=== PATIENT | female | born 2000 | race Caucasian/White ===

== ENCOUNTER 2018-05-22 01:30 | Inpatient (IN) | payer BC ==
[~2018-05-22] VITALS: Ht 165.1 cm; Wt 98.9 kg
[2018-05-22] MEDS: LR 1,000 ML IV SCH ×5 (02:16→21:00)
[2018-05-22] MEDS ORDERED: OXYTOCIN/0.9 % SODIUM CHLORIDE 1,000 ML IV SCH ×2 (02:28→23:19)
[2018-05-22] MEDS ORDERED: LR 1,000 ML IV ONE (02:28)
[2018-05-22] MEDS ORDERED: NALBUPHINE HCL 10 MG/ML AMP IVP PRN (02:30)
[2018-05-22] MEDS ORDERED: OXYTOCIN 30 UNIT in LR 1,000 ML IV SCH (02:30)
[2018-05-22 02:37] VITALS: BP_SYST 104
[2018-05-22 03:20] LABS: HEMATOCRIT 34.6 % (36-48); HEMOGLOBIN 12.1 g/dL (12.0-16.0); LYMPHOCYTES % (AUTO) 19.5 % (20.5-51.5); MEAN CORPUSCULAR HEMOGLOBIN 30 pg (27-31); MEAN CORPUSCULAR HGB CONC 35 % (32-36); MEAN CORPUSCULAR VOLUME 86 fL (79.0-98.0); MONOCYTES % (AUTO) 4.5 % (1.7-9.3); NEUTROPHILS % (AUTO) 75.1 % (40.0-70.0); PLATELET COUNT (AUTO) 267 K/uL (130-430); RED BLOOD CELL COUNT(AUTO) 4.05 MIL/uL (4.2-6.2); RED CELL DISTRIBUTION WIDTH 12.4 % (9.0-15.0); WHITE BLOOD COUNT (AUTO) 14.4 K/uL (4.5-11.0)
[2018-05-22 03:21] LABS: BASOPHILS # (AUTO) 0.1 K/uL (0.0-0.2); BASOPHILS % (AUTO) 0.5 % (0.0-2.0); EOSINOPHILS # (AUTO) 0.1 K/uL (0.0-0.4); EOSINOPHILS % (AUTO) 0.4 % (0.0-4.0); LYMPHOCYTES # (AUTO) 2.8 K/uL (1.0-5.5); MONOCYTES # (AUTO) 0.6 K/uL (0.0-1.0); NEUTROPHILS # (AUTO) 10.8 K/uL (1.8-7.7)
[2018-05-22] MEDS ORDERED: ROPIVACAINE 0.2% 100 ML ONE ×2 (04:53→10:19)
[2018-05-22] MEDS ORDERED: fentaNYL CITRATE/PF 100 MCG/2 ML AMP ONE ×4 (04:53→20:19)
[2018-05-22] MEDS ORDERED: LR 500 ML IV ONE (05:23)
[2018-05-22] MEDS ORDERED: FENT2mCg/mL-ROPIVA0.2%/NS EPID 150 ML EP SCH (05:30)
[2018-05-22] MEDS ORDERED: AMPICILLIN SODIUM 2 GM in NS 100 ML IV ONE (13:45)
[2018-05-22] MEDS ORDERED: AMPICILLIN SODIUM 1 GM in NS 50 ML IV SCH (18:00)
[2018-05-22] MEDS ORDERED: TEMAZEPAM 15 MG CAPSULE PO PRN (21:00)
[2018-05-22] MEDS ORDERED: METHYLERGONOVINE MALEATE 0.2 MG/ML AMP ONE (22:58)
[2018-05-22] MEDS ORDERED: OXYTOCIN/0.9 % SODIUM CHLORIDE 1,000 ML IV ONE (23:19)
[2018-05-22] MEDS ORDERED: DERMOPLAST SPRAY TP PRN (23:30)
[2018-05-22] MEDS ORDERED: LANOLIN 7 GM OINT. TP PRN (23:30)
[2018-05-22] MEDS ORDERED: METHYLERGONOVINE MALEATE 0.2 MG TABLET PO PRN (23:30)
[2018-05-22] MEDS ORDERED: DIPH-TET-PERTUS Vaccine 0.5 ML VIAL (ADACEL) I.M. PRN (23:30)
[2018-05-22] MEDS ORDERED: ANUSOL 1 EA SUPP.RECT (PREPARATION H) RC PRN (23:30)
[2018-05-22] MEDS ORDERED: HYDROCORTISONE 0.5%, 28.35 GM TOPICAL CREAM TP PRN (23:30)
[2018-05-22] MEDS ORDERED: MEASLES,MUMPS&RUBELLA VACC/PF 12500 UNIT/0.5 ML VIAL SUBQ PRN (23:30)
[2018-05-22] MEDS ORDERED: WITCH HAZEL LEAF 1 MED.PAD MED.PAD TP PRN (23:30)
[2018-05-22] MEDS ORDERED: DOCUSATE SODIUM 100 MG CAPSULE PO PRN (23:30)
[2018-05-23] MEDS ORDERED: IBUPROFEN 600 MG TABLET ONE (01:21)
[2018-05-23 06:52] LABS: HEMATOCRIT 40.3 % (36-48); HEMOGLOBIN 13.8 g/dL (12.0-16.0); MEAN CORPUSCULAR HEMOGLOBIN 30 pg (27-31); MEAN CORPUSCULAR HGB CONC 34 % (32-36); MEAN CORPUSCULAR VOLUME 87 fL (79.0-98.0); PLATELET COUNT (AUTO) 320 K/uL (130-430); RED BLOOD CELL COUNT(AUTO) 4.63 MIL/uL (4.2-6.2); RED CELL DISTRIBUTION WIDTH 12.6 % (9.0-15.0)
[2018-05-23 07:26] LABS: WHITE BLOOD COUNT (AUTO) 25.5 K/uL (4.5-11.0)
[2018-05-23 08:14] LABS: BAND % (MANUAL) 2 % (0-6); BASOPHILS % (MANUAL) 0 % (0-2); EOSINOPHILS % (MANUAL) 0 % (0-7); LYMPHOCYTES % (MANUAL) 7 % (20-46); MONOCYTES % (MANUAL) 0 % (0-11)
[2018-05-23] MEDS: IBUPROFEN 600 MG TABLET PO SCH ×2 (12:25→17:44)
[2018-05-23] MEDS ORDERED: OXYCODONE/ACETAMINOPHEN 5-325 TABLET PO PRN (20:45)
[2018-05-24] MEDS: IBUPROFEN 600 MG TABLET PO SCH ×3 (00:46→11:48)
[2018-05-24 07:22] LABS: BASOPHILS # (AUTO) 0.1 K/uL (0.0-0.2); BASOPHILS % (AUTO) 0.5 % (0.0-2.0); EOSINOPHILS # (AUTO) 0.2 K/uL (0.0-0.4); EOSINOPHILS % (AUTO) 1.3 % (0.0-4.0); HEMOGLOBIN 9.8 g/dL (12.0-16.0); LYMPHOCYTES # (AUTO) 3.9 K/uL (1.0-5.5); LYMPHOCYTES % (AUTO) 28.4 % (20.5-51.5); MEAN CORPUSCULAR HEMOGLOBIN 29 pg (27-31); MEAN CORPUSCULAR HGB CONC 33 % (32-36); MEAN CORPUSCULAR VOLUME 89 fL (79.0-98.0); MONOCYTES # (AUTO) 0.8 K/uL (0.0-1.0); MONOCYTES % (AUTO) 6.2 % (1.7-9.3); NEUTROPHILS # (AUTO) 8.6 K/uL (1.8-7.7); NEUTROPHILS % (AUTO) 63.6 % (40.0-70.0); PLATELET COUNT (AUTO) 247 K/uL (130-430); RED BLOOD CELL COUNT(AUTO) 3.39 MIL/uL (4.2-6.2); RED CELL DISTRIBUTION WIDTH 13.1 % (9.0-15.0); WHITE BLOOD COUNT (AUTO) 13.6 K/uL (4.5-11.0)
[2018-05-24] MEDS ORDERED: IBUP-1971 PO (08:25)
== END 2018-05-24 15:47 | disposition home or self-care (01) | DRG 775 ==
LOC: SPU 01:30
PROVIDERS: ADMIT Specialist; ATTEND Specialist
PROC: 10E0XZZ Delivery of Products of Conception, External Approach (ICD-10-PCS; principal; 2018-05-22)
PROC: 0UQGXZZ Repair Vagina, External Approach (ICD-10-PCS; 2018-05-22)
PROC: 3E0R3BZ Introduction of Anesthetic Agent into Spinal Canal, Percutaneous Approach (ICD-10-PCS; 2018-05-22)
PROC: 00HU33Z Insertion of Infusion Device into Spinal Canal, Percutaneous Approach (ICD-10-PCS; 2018-05-22)
DX: O42.92 Full-term premature rupture of membranes, unspecified as to length of time between rupture and onset of labor (principal); O71.4 Obstetric high vaginal laceration alone; O36.5930 Maternal care for other known or suspected poor fetal growth, third trimester, not applicable or unspecified; Z3A.39 39 weeks gestation of pregnancy; Z37.0 Single live birth
CPT/HCPCS: 36415; 85007; 85025; 85027; 86592; 86886; 86900; 86901; J0290; J2210; J2300; J2590; J2795; J3010; J7120

== ENCOUNTER 2019-01-28 22:27 | Inpatient (IN) | payer BC ==
[~2019-01-28] VITALS: Ht 165.1 cm; Wt 95.7 kg
[~2019-01-28 22:27] MED LIST: IBUP-1971 PO
[2019-01-28 22:35] VITALS: BP_SYST 97
--- NOTE | 2019-01-28 22:42 | NUR ---
Patient triaged and placed in waiting room. VSS and patient appears in no acute distress at this time. Accompanied by father, awaiting available bed, and MD notified of need for MSE.
--- NOTE | 2019-01-28 23:06 | NUR ---
Pt wheeled to bed 1 for evaluation
--- NOTE | 2019-01-28 23:07 | NUR ---
Pt was wheeled to bed 1 c/o rib pain and upper abdominal pain that happened this evening. Pt states she was cleaning her room when she started to feel excruciating pain to rib and abdomen, causing N/V. Pt felt hot and cold. No other injuries/complaints per patient or noted.
--- NOTE | 2019-01-28 23:08 | NUR ---
ER Dr. North at bedside examining patient.
[2019-01-28] MEDS ORDERED: NACL 0.9% 1,000 ML IV ONE (23:13)
[2019-01-28] MEDS ORDERED: ONDANSETRON HCL 4 MG/2 ML VIAL IVP ONE (23:15)
[2019-01-28] MEDS ORDERED: KETOROLAC TROMETHAMINE 30 MG VIAL IVP ONE (23:15)
[2019-01-28 23:28] LABS: BASOPHILS % (AUTO) 0.5 % (0.0-2.0); EOSINOPHILS # (AUTO) 0.1 K/uL (0.0-0.4); EOSINOPHILS % (AUTO) 0.8 % (0.0-4.0); HEMATOCRIT 36.9 % (36-48); HEMOGLOBIN 11.8 g/dL (12.0-16.0); LYMPHOCYTES % (AUTO) 25.5 % (20.5-51.5); MEAN CORPUSCULAR HEMOGLOBIN 27 pg (27-31); MEAN CORPUSCULAR HGB CONC 32 % (32-36); MEAN CORPUSCULAR VOLUME 84 fL (79.0-98.0); MONOCYTES # (AUTO) 0.6 K/uL (0.0-1.0); MONOCYTES % (AUTO) 7.4 % (1.7-9.3); NEUTROPHILS # (AUTO) 5.1 K/uL (1.8-7.7); NEUTROPHILS % (AUTO) 65.8 % (40.0-70.0); PLATELET COUNT (AUTO) 265 K/uL (130-430); WHITE BLOOD COUNT (AUTO) 7.7 K/uL (4.5-11.0)
[2019-01-28 23:43] LABS: CALCIUM 8.6 mg/dL (8.4-11.0); CREATININE 0.86 mg/dL (0.55-1.30); POTASSIUM 3.5 mmol/L (3.5-5.1)
[2019-01-28 23:49] LABS: ALBUMIN 3.5 g/dL (3.4-4.8); TOTAL BILIRUBIN 0.2 mg/dL (0.0-1.0)
[2019-01-29] VITALS (7 sets, daily range): BP systolic 91–119
[2019-01-29] MEDS ORDERED: NORE1TAB92 PO (00:08)
--- NOTE | 2019-01-29 00:08 | NUR ---
ER Dr. North at bedside explaining results to patient.
--- NOTE | 2019-01-29 00:08 | NUR ---
Medication reconciliation completed with information provided by patient. Any prior medication reconciliation on file was reviewed and corrected.
--- NOTE | 2019-01-29 01:28 | NUR ---
Note ashutosh in EDM - 01/29/19 at 0131 by [email or web address] Patient will be admitted to care of Dr. James. Admitted to Med Surg unit. Will go to room 108 C. Belongings list completed. Summary report printed. Report will be given at bedside.
--- NOTE | 2019-01-29 01:28 | NUR ---
Transfer to [facility]. IV present no sign or symptom of infiltration.
[2019-01-29] MEDS ORDERED: KETOROLAC TROMETHAMINE 30 MG VIAL IVP PRN (01:30)
--- NOTE | 2019-01-29 01:49 | NUR ---
ADMIT NOTE Received pt from ER to the floor with a diagnosis of acute cholecystitis. Admission process initiated. patient oriented to pain management, safety and call light-teach back done.
[2019-01-29] MEDS: NACL 0.9% 1,000 ML IV SCH ×2 (01:59→21:44)
--- NOTE | 2019-01-29 03:08 | NUR ---
PATIENT AWAKE ALERT AMBULATES STEADY GAIT , ASSIST OUT OF BED TO Rest Room call system use procedures explained verbalize understanding Teach back method implemented .
--- NOTE | 2019-01-29 03:11 | NUR ---
ADMISSION: The patient, JULIO QUEZADA, 18 y/o, F admitted by RAVEN GARCIA DO, was given written information regarding hospital policies, unit procedures and contact persons. Valuables were checked and personal belongings list completed procedures explained patient verbalize understanding .
--- NOTE | 2019-01-29 05:04 | NUR ---
CONSULT: CONSULT CALLED FOR DR. GEOFFREY JOY I SPOKE WITH [place] REASON FOR CONSULT: CHOLECYSTITIS REQUESTING CONSULT: DR. GARCIA [employer] SHIFT MANAGER PHONE NUMBER: [phone]
[2019-01-29] MEDS ORDERED: ACETAMINOPHEN 325 MG TABLET PO PRN (07:45)
[2019-01-29] MEDS ORDERED: ONDANSETRON HCL 4 MG/2 ML VIAL IVP PRN (07:45)
[2019-01-29] MEDS ORDERED: MORPHINE 4 MG/ML INJ. SYRINGE IVP PRN (07:45)
[2019-01-29] MEDS ORDERED: MAGNESIUM SULFATE 50 ML IV PRN (07:45)
[2019-01-29] MEDS ORDERED: POTASSIUM CHLORIDE 20 MEQ TAB.PRT.SR PO PRN (07:45)
[2019-01-29] MEDS ORDERED: DOCUSATE SODIUM 100 MG CAPSULE PO PRN (07:45)
[2019-01-29] MEDS ORDERED: MUPIROCIN 2% TOPICAL OINTMENT 22 GM NS PRN (07:45)
--- NOTE | 2019-01-29 07:59 | NUR ---
AM NOTES IN BED, AWAKE. KEEP NPO. DENIES ANY PAIN OR DISCOMFORT. IVF INFUSING WELL. SAFETY PRECAUTION OBSERVED. CALL LIGHT IN REACH. ENC. TO CALL FOR HELP NEEDED.
[2019-01-29 09:12] LABS: PROTHROMBIN TIME 10.2 SECS (9.5-12.5)
--- NOTE | 2019-01-29 10:05 | NUR ---
notes- Resting in bed, denies any pain. Still waiting for the urine. Pt's aware.
[2019-01-29 10:21] LABS: AMYLASE 103 U/L (0-100); LIPASE 247 U/L (73-393)
[2019-01-29 11:20] LABS: BILIRUBIN,URINE NEGATIVE (NEGATIVE); BLOOD, URINE NEGATIVE (NEGATIVE); COLOR,URINE YELLOW (YELLOW); GLUCOSE,URINE NEGATIVE (NEGATIVE); KETONES,URINE NEGATIVE (NEGATIVE); LEUKOCYTE ESTERASE ,URINE 2+ (NEGATIVE); NITRITE, URINE NEGATIVE (NEGATIVE); PH,URINE 6.5 (5.0-8.0); PROTEIN URINE 1+ (NEGATIVE); UROBILINOGEN,URINE 0.2 (0.2-1.0)
[2019-01-29 11:27] LABS: CLARITY/URINE HAZY (CLEAR)
[2019-01-29 11:30] LABS: BACTERIA,URINE MODERATE /HPF (None Seen); WBC,URINE 20-50 /HPF (0-3)
[2019-01-29 11:31] LABS: MUCUS,URINE 2+ /LPF (None Seen)
[2019-01-29 11:40] LABS: BARBITURATE, URINE NEGATIVE (NEG <=200); BENZODIAZEPINE, URINE NEGATIVE (NEG <=150); CANNABINOID, URINE NEGATIVE (NEG <=50); COCAINE, URINE NEGATIVE (NEG <=150); METHAMPHETAMINES SCREEN,URINE NEGATIVE (NEG <=500); OPIATE, URINE NEGATIVE (NEG <=100); PHENCYCLIDINE SCREEN,URINE NEGATIVE (NEG <=25); UR TRICYCLIC ANTIDEPRESSANTS NEGATIVE (NEG <=300); URINE AMPHETAMINE NEGATIVE (NEG <=500); URINE METHADONE NEGATIVE (NEG <=200); URINE OXYCODONE SCREEN NEGATIVE (NEG <=100); URINE PROPOXYPHENE SCREEN NEGATIVE (NEG <=300)
--- NOTE | 2019-01-29 14:17 | NUR ---
Notes- Follow up consult to Dr. Dukes. Pt in bed, denies any pain at this time. IVF infusing well. No distress noted.
--- NOTE | 2019-01-29 17:02 | NUR ---
Surgical consult follow up: Called and spoke with Derian at exchange. consult resent to Sekou Ramirez regarding cholecystitis
--- NOTE | 2019-01-29 17:08 | NUR ---
Notes- Spoke to Dr. knox, Per mD he will come and see patient and family at bedside and made aware.
--- NOTE | 2019-01-29 18:30 | NUR ---
Notes- in bed, family at bedside. Denies any pain at this time. IVF infusing well. no distress noted. will endorse
--- NOTE | 2019-01-29 19:20 | NUR ---
INITIAL NOTES: BEDSIDE REPORT DONE THIS TIME.PATIENT IN BED AWAKE ,ALERT ,ORIENTED X4. FATHER AT BEDSIDE ASKING WHEN SURGEON COMES TO SEE PATIENT SINCE SHE IS HUNGRY.AM RN VALERIE WHO SPOKE TO MD INFORMED THEM AGAIN ,MD WILL COME ANYTIME TONIGHT.NOC RN WILL CALL.NON TELE.NOTED IVF PUMP OFF SINCE IVF BAG IS EMPTY.CALL LIGHT WITHIN REACH. BED IN LOW POSITION FOR SAFETY.VERBALIZED AMBULATES TO BATHROOM WITH STEADY GAIT TO VOID. DENIES ABDOMINAL PAIN THIS TIME. FEEL HUNGRY.
--- NOTE | 2019-01-29 20:25 | NUR ---
NEW IV LINE: CURRENT IV LINE UNABLE TO FLUSH, KINKED. NEW IV LINE INSERTED BY AN JISHA USING #22 GAUGE TO RIGHT HAND WITH BLOOD RETURN. IVF RE STARTED.
--- NOTE | 2019-01-29 20:45 | NUR ---
PAGED Sekou [facility] EXCHANGE.
--- NOTE | 2019-01-29 21:25 | NUR ---
GONZALO YUAN ANSWERED FOR DR. HALE WHO IS DOING SURGERY NOW. GEOFFREY MCCRAY SAID HE WILL IN AN HOUR AFTER SURGERY. PATIENT MADE AWARE.
--- NOTE | 2019-01-29 22:10 | NUR ---
Gabino WEST. HERE. SEEN , EXAMINE AND EXPLAINED PLAN OF CARES IN AM,WITH ORDERS. RN PRESENT DURING EXAM. PATIENT UNDERSTOOD AND AGREE.
--- NOTE | 2019-01-29 22:35 | NUR ---
JELLO, JUICE GIVEN TO START WITH. PATIENT CALLED HOME TO BRING LOW FAT DIET FOODS.
--- NOTE | 2019-01-29 23:40 | NUR ---
NAUSEA: COMPLAIN OF SLIGHT NAUSEA. ZOFRAN 4MG IV GIVEN .
--- NOTE | 2019-01-29 23:50 | NUR ---
FAMILIES HERE WITH FOOD OF PASTA,BEANS AND RICE. INFORMED PATIENT TO EAT SMALL AMT. TP PREVENT STOMACH ACHE/PAIN.
--- NOTE | 2019-01-30 02:00 | NUR ---
ROUNDS: PATIENT RESTING QUIETELY WITH EYES CLOSE. NO DISTRESS.
--- NOTE | 2019-01-30 04:20 | NUR ---
NO DISTRESS SLEEPING. CALL LIGHT WITHIN REACH.
--- NOTE | 2019-01-30 06:21 | NUR ---
CLOSING: IVF STILL INFUSING. SLEPT AT LONG INTERVALS. FOR DISCHARGE TODAY. ALL SAFETY MEASURES OBSERVED.CALL LIGHT WITHIN REACH. NO SEVERE ABDOMINAL PAIN.
[2019-01-30 06:53] LABS: BASOPHILS % (AUTO) 0.6 % (0.0-2.0); EOSINOPHILS # (AUTO) 0.1 K/uL (0.0-0.4); EOSINOPHILS % (AUTO) 1.2 % (0.0-4.0); HEMATOCRIT 32.3 % (36-48); HEMOGLOBIN 10.3 g/dL (12.0-16.0); LYMPHOCYTES # (AUTO) 2.5 K/uL (1.0-5.5); LYMPHOCYTES % (AUTO) 37.6 % (20.5-51.5); MEAN CORPUSCULAR HEMOGLOBIN 27 pg (27-31); MEAN CORPUSCULAR HGB CONC 32 % (32-36); MEAN CORPUSCULAR VOLUME 84 fL (79.0-98.0); MONOCYTES # (AUTO) 0.6 K/uL (0.0-1.0); MONOCYTES % (AUTO) 8.8 % (1.7-9.3); NEUTROPHILS # (AUTO) 3.4 K/uL (1.8-7.7); NEUTROPHILS % (AUTO) 51.8 % (40.0-70.0); PLATELET COUNT (AUTO) 232 K/uL (130-430); RED BLOOD CELL COUNT(AUTO) 3.84 MIL/uL (4.2-6.2); RED CELL DISTRIBUTION WIDTH 12.9 % (9.0-15.0); WHITE BLOOD COUNT (AUTO) 6.6 K/uL (4.5-11.0)
[2019-01-30 07:15] LABS: CALCIUM 8.3 mg/dL (8.4-11.0); CREATININE 1.02 mg/dL (0.55-1.30); POTASSIUM 4.2 mmol/L (3.5-5.1)
--- NOTE | 2019-01-30 07:35 | NUR ---
OPENING NOTE At initial assessment, patient is sleeping but easily arousable, no c/o pain or discomfort at this time. Breathing even and unlabored. IV site on the RAC 20G patent and intact, IVF infusing as ordered. Safety, and fall precautions in place, bed low and locked, side rails up x3, call light within reach, will continue to monitor.
[2019-01-30 08:00] VITALS: BP_SYST 98
[2019-01-30] MEDS: NACL 0.9% 1,000 ML IV SCH ×3 (09:27→23:22)
[2019-01-30] MEDS: cefTRIAXone 1 GM in D5W 50 ML IV SCH (10:33)
--- NOTE | 2019-01-30 10:45 | NUR ---
DR. BEAVERS AT THE BEDSIDE Dr. Beavers seen and examined the patient at the bedside.
--- NOTE | 2019-01-30 11:45 | NUR ---
ROUNDS Patient is awake, no c/o pain/discomfort. Breathing even and unlabored. IVF infusing as ordered. No further needs at this time. Safety precautions observed, call light within reach, will continue to monitor.
[2019-01-30 12:00] VITALS: BP_SYST 102
--- NOTE | 2019-01-30 13:40 | NUR ---
ROUNDS Patient is awake, resting, denies any pain/discomfort/nausea/vomiting. IVF infusing as ordered. No respiratory distress noted. Safety precautions observed, call light within reach, will continue to monitor.
--- NOTE | 2019-01-30 16:00 | NUR ---
ROUNDS Patient is resting with eyes closed, but easily arousable. No c/o pain/discomfort. Breathing even and unlabored. No further needs at this time. Safety precautions observed, call light within reach, will continue to monitor.
[2019-01-30 16:20] VITALS: BP_SYST 94
--- NOTE | 2019-01-30 18:29 | NUR ---
CLOSING NOTE Patient is awake, reports 6/10 left side aching pain, PRN Toradol IVP given as ordered. No respiratory distress noted, breathing even and unlabored. Patient able to tolerate dinner, no c/o n/v. IV site remains patent and intact, IVF infusing as ordered. Safety and fall precautions in place, bed low and locked, side rails up x2, call light within reach. All needs met and anticipated throughout the shift, will endorse plan of care.
[2019-01-30 20:00] VITALS: BP_SYST 98
--- NOTE | 2019-01-30 20:00 | NUR ---
Initial Notes Received patient resting in bed, awake, alert, oriented. Patient denies any acute distress or pain at this time. Breathing is even and unlabored. IV site patent/clean/dry. Needs addressed. Educated patient regarding use of call light for assistance and fall precautions, patient verbalized understanding. Call light in hand, fall precautions in place.
--- NOTE | 2019-01-30 22:00 | NUR ---
Nursing Notes Patient resting in bed, awake. Patient denies any acute distress or pain at this time. Breathing is even and unlabored. IV site patent/clean/dry. Patient denies any needs at this time. Call light in hand, fall precautions in place.
--- NOTE | 2019-01-31 | NUR ---
Nursing Notes Patient resting in bed, awake on laptop. Patient denies any acute distress or pain at this time. Breathing is even and unlabored. IV site patent/clean/dry. Assisted patient to restroom for hygiene care, patient self showered without incident. Needs addressed. Call light in hand, fall precautions in place.
[2019-01-31 01:24] VITALS: BP_SYST 98
--- NOTE | 2019-01-31 02:01 | NUR ---
Nursing Notes Patient resting in bed with eyes closed. No acute distress noted, breathing is even and unlabored. IV site patent/clean/dry. Call light in hand, fall precautions in place.
--- NOTE | 2019-01-31 04:31 | NUR ---
Nursing Notes Patient resting in bed with eyes closed. No distress noted. Breathing is even and unlabored. IV site patent/clean/dry. Call light in hand, fall precautions in place. Will continue to monitor.
--- NOTE | 2019-01-31 06:39 | NUR ---
Closing Notes Patient resting in bed with eyes closed, easily aroused. Patient denies any acute distress or pain at this time. Breathing is even and unlabored. IV site patent/clean/dry, no S/S infection/infiltration noted. Needs addressed throughout shift. Call light in hand, fall precautions in place. Will continue to monitor for changes and safety, and endorse all patient care/needs to oncoming nurse.
[2019-01-31 06:55] LABS: CALCIUM 8.5 mg/dL (8.4-11.0); CREATININE 0.82 mg/dL (0.55-1.30); POTASSIUM 4.1 mmol/L (3.5-5.1)
[2019-01-31 07:09] LABS: BASOPHILS % (AUTO) 0.3 % (0.0-2.0); EOSINOPHILS # (AUTO) 0.1 K/uL (0.0-0.4); EOSINOPHILS % (AUTO) 0.7 % (0.0-4.0); HEMATOCRIT 32.3 % (36-48); HEMOGLOBIN 10.5 g/dL (12.0-16.0); LYMPHOCYTES # (AUTO) 2.9 K/uL (1.0-5.5); LYMPHOCYTES % (AUTO) 30.4 % (20.5-51.5); MEAN CORPUSCULAR HEMOGLOBIN 27 pg (27-31); MEAN CORPUSCULAR HGB CONC 32 % (32-36); MEAN CORPUSCULAR VOLUME 84 fL (79.0-98.0); MONOCYTES # (AUTO) 0.9 K/uL (0.0-1.0); MONOCYTES % (AUTO) 9.3 % (1.7-9.3); NEUTROPHILS # (AUTO) 5.6 K/uL (1.8-7.7); NEUTROPHILS % (AUTO) 59.3 % (40.0-70.0); PLATELET COUNT (AUTO) 249 K/uL (130-430); RED BLOOD CELL COUNT(AUTO) 3.86 MIL/uL (4.2-6.2); RED CELL DISTRIBUTION WIDTH 13.1 % (9.0-15.0); WHITE BLOOD COUNT (AUTO) 9.5 K/uL (4.5-11.0)
--- NOTE | 2019-01-31 07:30 | NUR ---
OPENING NOTE At initial assessment, patient is sleeping but easily arousable, denies any pain/discomfort at this time. Breathing even and unlabored. IV site patent and intact, IVF infusing as ordered. Safety and fall precautions in place, bed low and locked, side rails up x2, call light within reach, will continue to monitor.
[2019-01-31 08:00] VITALS: BP_SYST 95
--- NOTE | 2019-01-31 08:30 | NUR ---
DR. BEAVERS AT THE BEDSIDE Dr. Beavers seen and examined the patient at the bedside.
[2019-01-31] MEDS: cefTRIAXone 1 GM in D5W 50 ML IV SCH (09:13)
[2019-01-31 09:38] VITALS: BP_SYST 95
--- NOTE | 2019-01-31 09:50 | NUR ---
ROUNDS Patient is awake, no c/o pain/discomfort at this time. Patient is aware of discharge home today. No further needs at this time. Safety precautions in place, call light within reach, will continue to monitor.
--- NOTE | 2019-01-31 11:45 | NUR ---
D/C Patient Patient given medication reconciliation form and D/C instructions. Exit Care provided. Patient verbalized understanding. MD discussed with patient the results and treatment provided. Ambulatory with steady gait for discharge to home. Patient in stable condition, ID band removed. IV catheter removed, intact and dressing applied, no active bleeding. All belongings sent with patient. Patient accompanied by brother and [id number].
[2019-01-31 12:19] VITALS: BP_SYST 101
== END 2019-01-31 11:45 | disposition home or self-care (01) | DRG 439 ==
LOC: SED 22:27 → SMU 01-29 01:18
PROVIDERS: ADMIT Family Medicine; ATTEND Family Medicine
DX: K85.10 Biliary acute pancreatitis without necrosis or infection (principal); K80.10 Calculus of gallbladder with chronic cholecystitis without obstruction; N39.0 Urinary tract infection, site not specified; D64.9 Anemia, unspecified; Z79.899 Other long term (current) drug therapy
CPT/HCPCS: 36415; 76700-TC; 80048; 80053; 80307; 81000-TC; 82150-TC; 83036; 83690-TC; 83735-TC; 85025; 85610-TC; 87081; 96361; 96374; 96375; 99285; J0696; J1885; J2405; J7030; J7060

== ENCOUNTER 2021-12-02 15:07 | Emergency (ER) | payer BC, OTHER ==
[~2021-12-02] VITALS: Ht 165.1 cm; Wt 113.4 kg
[2021-12-02 15:07] VITALS: BP_SYST 100
[~2021-12-02 15:07] MED LIST changes: -IBUP-1971 PO; +NORE1TAB92 PO
--- NOTE | 2021-12-02 15:07 | NUR ---
BROUGHT BACK TO BED #1 AND TRIAGED. REPORT GIVEN TO LYDIA
--- NOTE | 2021-12-02 15:26 | NUR ---
PT TO CT SCAN
--- NOTE | 2021-12-02 15:53 | NUR ---
PT VOMITIING MD AWARE
[2021-12-02] MEDS ORDERED: ONDANSETRON 4 MG ODT TAB PO ONE (16:00)
[2021-12-02] MEDS ORDERED: SOM350 PO (16:32)
[2021-12-02] MEDS ORDERED: ONDA-8 TL (16:32)
[2021-12-02] MEDS ORDERED: IBUP-1971 PO (16:32)
[2021-12-02 18:27] VITALS: BP_SYST 104
--- NOTE | 2021-12-02 18:28 | NUR ---
Patient given written and verbal discharge instructions and verbalizes understanding. SELWYN GARCIA MD discussed with patient the results and treatment provided. Patient in stable condition. ID arm band removed. Rx of MOTTESFAYE REYES SOMA given. Patient educated on pain management and to follow up with PMD. Pain Scale 2. Opportunity for questions provided and answered. Medication side effect fact sheet provided.
== END 2021-12-02 18:27 | disposition home or self-care (01) ==
LOC: SED 15:07
DX: S09.90XA Unspecified injury of head, initial encounter (principal); F41.9 Anxiety disorder, unspecified; Z79.899 Other long term (current) drug therapy; W22.8XXA Striking against or struck by other objects, initial encounter; Y93.89 Activity, other specified; Y92.89 Other specified places as the place of occurrence of the external cause; Y99.0 Civilian activity done for income or pay
CPT/HCPCS: 70450; 72125; 76376; 99284; Q0162

== ENCOUNTER 2022-03-26 07:48 | Emergency (ER) | payer BC, OTHER ==
[~2022-03-26] VITALS: Ht 157.5 cm; Wt 104.3 kg
[~2022-03-26 07:48] MED LIST changes: +IBUP-1971 PO; +ONDA-8 TL; +SOM350 PO
--- NOTE | 2022-03-26 08:04 | NUR ---
Patient to ER bed 7 to gown for evaluation. Side rails up. Report given to LUIS EDUARDO OROZCO.
[2022-03-26 08:05] VITALS: BP_SYST 112
--- NOTE | 2022-03-26 08:05 | NUR ---
Pt presents to the ER bib friend from home. C/O flank pain level 9/10. aaox4 skin intact no signs of trauma no temp. vss wnl. PMHx interstitial cystitis
--- NOTE | 2022-03-26 08:20 | NUR ---
ER Dr. Haines at bedside examining patient.
[2022-03-26] MEDS ORDERED: KETOROLAC TROMETHAMINE 30 MG VIAL IM ONE (08:30)
[2022-03-26] MEDS ORDERED: methocarbamoL 500 MG TABLET PO ONE (08:30)
[2022-03-26] MEDS ORDERED: LIDOCAINE PATCH 5% 1 EA TP ONE (08:30)
[2022-03-26] MEDS ORDERED: OXYCODONE/ACETAMINOPHEN 5-325 TABLET PO ONE (08:45)
--- NOTE | 2022-03-26 08:58 | NUR ---
Urine specimen collected and analyzed in ER. Results given to ER MD. sent to lab. UA and negative at POC.
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
[2022-03-26] MEDS ORDERED: LIDO1ADH22 TP (09:41)
[2022-03-26] MEDS ORDERED: METH-634 PO (09:41)
[2022-03-26] MEDS ORDERED: IBUP-1969 PO (09:41)
--- NOTE | 2022-03-26 09:56 | NUR ---
Patient given written and verbal discharge instructions and verbalizes understanding. ER MD discussed with patient the results and treatment provided. Patient in stable condition. ID arm band removed. IV catheter removed intact and dressing applied, no active bleeding. Rx of Robaxin Toradol and Lidocaine given. Patient educated on pain management and to follow up with PMD. Opportunity for questions provided and answered. Medication side effect fact sheet provided.
[2022-03-26 09:57] VITALS: BP_SYST 112
== END 2022-03-26 09:56 | disposition home or self-care (01) ==
LOC: SED 07:48
DX: S29.012A Strain of muscle and tendon of back wall of thorax, initial encounter (principal); Z79.899 Other long term (current) drug therapy; X50.9XXA Other and unspecified overexertion or strenuous movements or postures, initial encounter; Y93.89 Activity, other specified; Y92.89 Other specified places as the place of occurrence of the external cause; Y99.8 Other external cause status
CPT/HCPCS: 96372; 99283; J1885

== ENCOUNTER 2023-03-25 20:54 | Emergency (ER) | payer BC ==
[~2023-03-25] VITALS: Ht 165.1 cm; Wt 110.7 kg
[~2023-03-25 20:54] MED LIST changes: +IBUP-1969 PO; +LIDO1ADH22 TP; +METH-634 PO
[2023-03-25 21:21] VITALS: BP_SYST 116
[2023-03-25 21:43] LABS: BILIRUBIN,URINE NEGATIVE (NEGATIVE); BLOOD, URINE NEGATIVE (NEGATIVE); CLARITY/URINE CLEAR (CLEAR); COLOR,URINE YELLOW (YELLOW); GLUCOSE,URINE NEGATIVE (NEGATIVE); KETONES,URINE NEGATIVE (NEGATIVE); LEUKOCYTE ESTERASE ,URINE NEGATIVE (NEGATIVE); NITRITE, URINE NEGATIVE (NEGATIVE); PROTEIN URINE NEGATIVE (NEGATIVE); UROBILINOGEN,URINE 0.2 (0.2-1.0)
[2023-03-25 21:53] LABS: BASOPHILS # (AUTO) 0.1 K/uL (0.0-0.2); BASOPHILS % (AUTO) 0.6 % (0.0-2.0); EOSINOPHILS # (AUTO) 0.1 K/uL (0.0-0.4); EOSINOPHILS % (AUTO) 0.8 % (0.0-4.0); HEMATOCRIT 39.8 % (36-48); HEMOGLOBIN 13.5 g/dL (12.0-16.0); LYMPHOCYTES # (AUTO) 2.5 K/uL (1.0-5.5); MEAN CORPUSCULAR HEMOGLOBIN 30 pg (27-31); MEAN CORPUSCULAR HGB CONC 34 % (32-36); MEAN CORPUSCULAR VOLUME 88 fL (79.0-98.0); MONOCYTES # (AUTO) 0.6 K/uL (0.0-1.0); NEUTROPHILS % (AUTO) 68.6 % (40.0-70.0); PLATELET COUNT (AUTO) 246 K/uL (130-430); RED BLOOD CELL COUNT(AUTO) 4.51 MIL/uL (4.2-6.2); RED CELL DISTRIBUTION WIDTH 12.7 % (9.0-15.0); WHITE BLOOD COUNT (AUTO) 10.2 K/uL (4.8-10.8)
[2023-03-25] MEDS ORDERED: MAG HYDROX/AL HYDROX/SIMETH 30 ML, DICYCLOMINE HCL 20 MG, LIDOCAINE VISCOUS 2% 15ML (PO... PO ONE ×3 (22:00)
[2023-03-25 22:08] LABS: ALBUMIN 3.6 g/dL (3.4-4.8); CALCIUM 8.7 mg/dL (8.4-11.0); CREATININE 0.89 mg/dL (0.55-1.30); TOTAL BILIRUBIN 0.3 mg/dL (0.0-1.0)
[2023-03-26] MEDS ORDERED: TRAM50TA2 PO (00:09)
[2023-03-26] MEDS ORDERED: OMEP40CA20 PO (00:09)
[2023-03-26 00:18] VITALS: BP_SYST 116
== END 2023-03-26 00:18 | disposition home or self-care (01) ==
LOC: SED 20:54
DX: K29.00 Acute gastritis without bleeding (principal); R19.7 Diarrhea, unspecified; Z87.19 Personal history of other diseases of the digestive system; Z79.899 Other long term (current) drug therapy
CPT/HCPCS: 99284; 74176; 80053; 83690; 85025; 36415; 76376; 81025; 81003; J2001